=== PATIENT | female | born 1980 | race Caucasian/White ===

== ENCOUNTER 2017-09-19 09:44 | Emergency (ER) | payer BC, MEDICAID ==
--- NOTE | 2017-09-19 10:06 | ER Document Report ---
ED Medical Screen (RME) - General Chief Complaint: General Weakness Stated Complaint: FACIAL NUMBNESS Time Seen by Provider: 09/19/17 10:02 Notes: Patient states for weeks. She states she also has a history of migraines. She states she woke up this morning with severe right-sided headache and noticed when she woke up that her right side was weak and felt "numb". Her significant other states this was approximately 4:30 AM this morning when she informed him of these problems. She states this does not feel like her usual migraines. Cranial nerve exam is unremarkable. TRAVEL OUTSIDE OF THE [place] IN LAST 30 DAYS: No - Related Data Allergies/Adverse Reactions: Penicillins Allergy (Unknown, Verified 09/19/17 09:58) rash codeine Allergy (Verified 09/19/17 09:58) Respiratory distress morphine Allergy (Verified 09/19/17 09:58) Respiratory distress asprin Allergy (Uncoded 09/19/17 09:58) rash Past Medical History - Social History Frequency of alcohol use: None Drug Abuse: None Neurological Medical History: Reports: Hx Migraine Renal/ Medical History: Denies: Hx Peritoneal Dialysis Past Surgical History: Reports: Hx Appendectomy, Hx Cholecystectomy - Immunizations Immunizations up to date: Yes Hx Diphtheria, Pertussis, Tetanus Vaccination: Yes Physical Exam - Vital signs Vitals: Temp Pulse Resp BP Pulse Ox 97.9 F 71 20 131/92 H 97 09/19/17 09:51 09/19/17 09:51 09/19/17 09:51 09/19/17 09:51 09/19/17 09:51 Course - Vital Signs Vital signs: Temp Pulse Resp BP Pulse Ox 97.9 F 71 20 131/92 H 97 09/19/17 09:51 09/19/17 09:51 09/19/17 09:51 09/19/17 09:51 09/19/17 09:51
[2017-09-19 10:29] LABS: ABSOLUTE EOSINOPHILS # (AUTO) 0.1 10^3/uL (0.0-0.6); ABSOLUTE LYMPHOCYTES (AUTO) 1.8 10^3/uL (0.5-4.7); ABSOLUTE MONOCYTES (AUTO) 0.4 10^3/uL (0.1-1.4); ABSOLUTE NEUT (AUTO) 3.4 10^3/uL (1.7-8.2); BASOPHILS % (AUTO) 0.2 % (0-2); EOSINOPHILS % (AUTO) 2.3 % (0-6); HEMATOCRIT 39.7 % (36.0-47.0); HEMOGLOBIN 13.4 g/dL (12.0-15.5); LYMPHOCYTES % (AUTO) 31.3 % (13-45); MEAN CORPUSCULAR HEMOGLOBIN 28.7 pg (27.0-33.4); MEAN CORPUSCULAR HGB CONC 33.9 g/dL (32.0-36.0); MEAN CORPUSCULAR VOLUME 85 fl (80-97); MONOCYTES % (AUTO) 6.7 % (3-13); PLATELET COUNT 229 10^3/uL (150-450); RED BLOOD COUNT 4.68 10^6/uL (3.72-5.28); RED CELL DISTRIBUTION WIDTH 13.5 % (11.5-14.0); SEGMENTED NEUTROPHILS % (AUTO) 59.5 % (42-78); TOTAL CELLS COUNTED % (AUTO) 100 %; WHITE BLOOD COUNT 5.7 10^3/uL (4.0-10.5)
[2017-09-19 10:38] LABS: APPEARANCE,URINE SLIGHTLY-CLOUDY; BILIRUBIN,URINE NEGATIVE (NEGATIVE); COLOR,URINE YELLOW; GLUCOSE, URINE NEGATIVE (NEGATIVE); KETONES,URINE NEGATIVE (NEGATIVE); LEUKOCYTE ESTERASE,URINE MODERATE (NEGATIVE); NITRITE,URINE NEGATIVE (NEGATIVE); PROTEIN,URINE NEGATIVE (NEGATIVE); URINE SPECIFIC GRAVITY 1.013; UROBILINOGEN,URINE NEGATIVE mg/dL (<2.0)
[2017-09-19 10:47] LABS: BLOOD UREA NITROGEN 14 mg/dL (7-20); CALCIUM 9.7 mg/dL (8.4-10.2); GLUCOSE 102 mg/dL (75-110)
[2017-09-19 10:48] LABS: ALANINE AMINOTRANSFERASE 80 U/L (9-52); ALBUMIN 4.1 g/dL (3.5-5.0); ALKALINE PHOSPHATASE 85 U/L (38-126); ANION GAP 6 (5-19); ASPARTATE AMINO TRANSFERASE 36 U/L (14-36); BILIRUBIN,DIRECT 0.1 mg/dL (0.0-0.4); BILIRUBIN,TOTAL 0.3 mg/dL (0.2-1.3); CARBON DIOXIDE 31 mmol/L (22-30); CHLORIDE 104 mmol/L (98-107); POTASSIUM 4.1 mmol/L (3.6-5.0); SODIUM 141.2 mmol/L (137-145); TOTAL PROTEIN 6.9 g/dL (6.3-8.2)
--- NOTE | 2017-09-19 10:54 | RADIOLOGY REPORT (SQ) ---
EXAM DESCRIPTION: CT HEAD WITHOUT COMPLETED DATE/TIME: 09/19/2017 10:37 am REASON FOR STUDY: right sided weakness COMPARISON: MRI brain dated 06/29/2012 TECHNIQUE: Axial images acquired through the brain without intravenous contrast. Images reviewed wi th bone, brain and subdural windows. Images stored on PACS. All CT scanners at this facility use dose modulation, iterative reconstruction, and/or weight based d osing when appropriate to reduce radiation dose to as low as reasonably achievable (ALARA). [facility]: Dose Right [facility]: CareDose [facility]: Dose Right [facility]: Teradose 4D [facility]: Wrike RADIATION DOSE: CT Rad equipment meets quality standard of care and radiation dose reduction techniq ues were employed. CTDIvol: 53.2 mGy. DLP: 1017 mGy-cm. mGy. LIMITATIONS: None. FINDINGS: VENTRICLES: Normal size and contour. CEREBRUM: No masses. No hemorrhage. No midline shift. No evidence for acute infarction. Normal gra y/white matter differentiation. No areas of low density in the white matter. CEREBELLUM: No masses. No hemorrhage. No alteration of density. No evidence for acute infarction. EXTRAAXIAL SPACES: No fluid collections. No masses. ORBITS AND GLOBE: No intra- or extraconal masses. Normal contour of globe without masses. CALVARIUM: No fracture. PARANASAL SINUSES: No fluid or mucosal thickening. SOFT TISSUES: No mass or hematoma. OTHER: No other significant finding. IMPRESSION: NORMAL BRAIN CT WITHOUT CONTRAST. EVIDENCE OF ACUTE STROKE: NO. COMMENT: Quality ID # [id number]: Final reports with documentation of one or more dose reduction techniques (e.g., Automated exposure control, adjustment of the mA and/or kV according to patient size, use of iterative reconstruction technique) TECHNICAL DOCUMENTATION: JOB ID: [id number] [employer]- All Rights Reserved Reading location - IP/workstation name: [email or web address]
[2017-09-19] MEDS ORDERED: NORMAL SALINE 1000 ML 1,000 ML IV ONE (11:14)
[2017-09-19] MEDS ORDERED: MECLIZINE HCL 25 MG TABLET PO ONE (11:15)
[2017-09-19] MEDS ORDERED: BUTALB/ACETAMINOPHEN/CAFFEINE 1 TAB EACH PO ONE (11:15)
[2017-09-19] MEDS ORDERED: ACETAMINOPHEN 325 MG TABLET PO ONE (11:15)
--- NOTE | 2017-09-19 11:19 | ER Document Report ---
ED Neuro Symptoms/Deficit - General Information source: Patient TRAVEL OUTSIDE OF THE [place] IN LAST 30 DAYS: No - HPI Patient complains to provider of: Other - Pain, numbness to right face, upper extremity and right lower extremity. No: Difficulty standing, Difficulty walking, Facial Droop, Paralysis, Speech Impairment Onset: This morning Awoke with symptoms: Yes Quality of pain: Sharp Pain Level: 5 Loss of consciousness: No loss of consciousness Baseline Cognitive: Alert, oriented X 3 Alert To: Name/Voice Patient Orientation: Person, Place, Time, Events Altered sensation: RUE, RLE, R facial Decreased ability to stand/walk: Off balance. denies: Cannot walk, Cannot stand Vision problem/glaucoma: No Associated symptoms: Dizzy, Headache, Nausea. denies: Chest pain, Back pain, Chills, Fever, Lightheadedness Similar symptoms previously: No Recently seen / treated by doctor: No <SERGEY CASTRO - Last Filed: 09/19/17 19:38> <KAMILAH ADAMS - Last Filed: 09/20/17 06:56> <ARACELI LEIJA - Last Filed: 09/20/17 10:39> - General Chief Complaint: General Weakness Stated Complaint: FACIAL NUMBNESS Time Seen by Provider: 09/19/17 10:02 Notes: Patient states that she woke up at 430 this morning with a sudden right-sided headache. Patient reported right sided facial pain, numbness with right upper extremity and right lower extremity pain and numbness. Patient states that she does have a history of frequent migraines although states that this headache pain is different from her typical migraines. Patient additionally reports that she has chronic right upper extremity numbness for the past 5 years but states that she does not typically have pain with her numbness to her right upper extremity. Patient states she did see a neurologist about her arm numbness but never followed up after having a MRI of the brain. Patient also reports that she has had some right lower eyelid twitching and pain for the past month. Patient does report cough today with some dizziness that she describes as feeling off balance. Patient reports nausea but denies any vomiting or diarrhea. Patient does report photophobia and phonophobia. 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 denies: Fever, Recent illness EENT: Eye pain - Right lower eyelid twitching, tenderness is one-month Cardiovascular: Dizziness. denies: Chest pain, Syncope Respiratory: No symptoms reported. denies: Cough, Short of breath Gastrointestinal: Nausea. denies: Abdominal pain, Diarrhea, Vomiting Genitourinary: No symptoms reported Female Genitourinary: No symptoms reported Musculoskeletal: Other - Right upper extremity pain, right lower extremity pain. denies: Back pain, Neck pain Skin: No symptoms reported Hematologic/Lymphatic: No symptoms reported Neurological/Psychological: Headaches, Numbness - Right face, right upper extremity, right lower extremity. denies: Confusion, Dementia, Seizure, Lost consciousness, Speech impairment, Tingling <SERGEY CASTRO - Last Filed: 09/19/17 19:38> Physical Exam - General General appearance: Appears well, Alert In distress: None - HEENT Head: Normocephalic, Atraumatic Eyes: Normal Conjunctiva: Normal Extraocular movements intact: Yes Eyelashes: Normal Pupils: PERRL Ears: Normal Nasal: Normal Mouth/Lips: Normal Mucous membranes: Normal Pharynx: Normal Neck: Normal, Supple. No: Lymphadenopathy, Meningismus - Respiratory Respiratory status: No respiratory distress Chest status: Nontender Breath sounds: Normal. No: Rales, Rhonchi, Stridor, Wheezing Chest palpation: Normal - Cardiovascular Rhythm: Regular Heart sounds: S1 appreciated, S2 appreciated Murmur: No - Abdominal Inspection: Normal Distension: No distension Bowel sounds: Normal Tenderness: Nontender - Back Back: Normal, Nontender. No: Vertebra tenderness - Extremities General upper extremity: Normal inspection, Tender - Right upper extremity, Normal color, Normal ROM, Normal strength. No: Edema General lower extremity: Normal inspection, Tender - Right lower extremity, Normal strength. No: Edema - Neurological Neuro grossly intact: Yes Cognition: Normal Orientation: AAOx4 [place] Coma Scale Eye Opening: Spontaneous Mert Coma Scale Verbal: Oriented [place] Coma Scale Motor: Obeys Commands Mert Coma Scale Total: 15 Speech: Normal. No: Dysarthria, Expressive aphasia, Receptive aphasia Cranial nerves: Sensory deficit - Decreased sensation with light palpation of right upper extremity, right face and right lower extremity. No: Facial palsy, Gaze palsy Cerebellar coordination: Heel-fajardo, Finger-nose rhombey, Rapid alt. movements. 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 No: Involuntary movements, Pronator drift, Hemiplegia Sensory: Altered light touch - Psychological Associated symptoms: Normal affect, Normal mood - Skin Skin Temperature: Warm Skin Moisture: Dry Skin Color: Normal <SERGEY CASTRO - Last Filed: 09/19/17 19:38> <KAMILAH ADAMS - Last Filed: 09/20/17 06:56> <ARACELI LEIJA - Last Filed: 09/20/17 10:39> - Vital signs Vitals: Temp Pulse Resp BP Pulse Ox 97.9 F 71 20 131/92 H 97 09/19/17 09:51 09/19/17 09:51 09/19/17 09:51 09/19/17 09:51 09/19/17 09:51 - HEENT Notes: Tongue protrudes midline (SERGEY CASTRO) Course - Laboratory Result Diagrams: 09/19/17 10:05 09/19/17 10:05 <SERGEY CASTRO - Last Filed: 09/19/17 19:38> - Laboratory Result Diagrams: 09/19/17 10:05 09/19/17 10:05 <KAMILAH ADAMS - Last Filed: 09/20/17 06:56> - Laboratory Result Diagrams: 09/19/17 10:05 09/19/17 10:05 <ARACELI LEIJA - Last Filed: 09/20/17 10:39> - Re-evaluation Re-evalutation: 09/19/17 11:[address] Yap who advises MRI of brain. 09/19/17 14:13 call placed to [facility] for neuro consulatation. Pt c/o continued GARCIA, RUE, RLE pain and numbness. 09/19/17 14:[address] Robertson at [facility] regarding patient presentation, discussed exam finding and imaging results. Dr Robertson feels that patient needs inpatient MS evaluation and that she will need to be transferred. Dr. Robertson does agree to accept patient for transfer. 09/19/17 15:05 pt updated regarding plans, pt agreeable with transfer. Pt continues with R GARCIA pain, RUE, RLE pain with numbness 09/19/17 18:00 pt resting, requesting meal tray, RN advised pt yet to get dinner tray. 09/19/17 19:39 bedside and handoff given to Loree JARVIS (SERGEY CASTRO) 09/20/17 02:37 Pt has no new concerns or complaints. Pt was given another dose of toradol for pain control. Vitals acceptable. We are still waiting for a bed at [facility]. 09/20/17 06:56 Recheck of patient. Pt would like tylenol. She declined any other stronger pain medication at this time. Pt also declined any ice/heat. Vitals acceptable, no other concerns or complaints at this time. Reviewed case with Renetta Leija REWORK OPERATOR who will coordinate care at this point. (KAMILAH ADAMS) 09/20/17 07:50 assumed care of the pt at 0700 at the bedside, she does not need anything at this time. Called [facility], 12 awaiting beds, said another 36-48 hour wait. [facility] , 41 waiting for medical beds. No Neuro at [facility]. 09/20/17 08:[address] robertson through his office at [phone] to left him know that there is a 36-48 hour wait for medical bed at [facility]. The 125 mg of methylprednisolone that was given IV the patient states that it made her headache worse on the right parietal posterior occipital area and it makes her want to close her right eye. Otherwise the patient states there is no change. Her vitals are stable. 09/20/17 08:46 Dr. Robertson states that she can be sent to ED to ED transfer, he will call the ED to tell them. I told him that I tried the Compazine and Benadryl and it is reducing the headache from a 5/5-4/5 it is just been given. She feels a little dizzy but I told her that it would make her sleepy. We will set up transport to the emergency department at [facility]. Dr. Richmond aware. 09/20/17 09:49 [facility] is here to take the patient I will start normal saline at 150 an hour since she stated that her urine was dark this morning. Her vitals are stable and she is stable for transport. 09/20/17 10:38 spoke with [facility] charge nurse GAMAL who has the history and does not need me to speak with the physician. (ARACELI LEIJA) - Vital Signs Vital signs: Temp Pulse Resp BP Pulse Ox 98.2 F 71 18 123/81 99 09/20/17 09:48 09/20/17 09:43 09/20/17 09:43 09/20/17 09:48 09/20/17 09:48 - Laboratory Laboratory results interpreted by me: 09/19/17 09/19/17 10:05 10:05 Carbon Dioxide 31 H ALT 80 H Ur Leukocyte Esterase MODERATE H Discharge <SERGEY CASTRO - Last Filed: 09/19/17 19:38> <KAMILAH ADAMS - Last Filed: 09/20/17 06:56> <ARACELI LEIJA - Last Filed: 09/20/17 10:39> - Discharge Condition: Stable Disposition: [facility]
--- NOTE | 2017-09-19 13:26 | RADIOLOGY REPORT (SQ) ---
EXAM DESCRIPTION: MRI HEAD COMBO COMPLETED DATE/TIME: 09/19/2017 1:05 pm REASON FOR STUDY: GARCIA, numbness/pain RONIT THOMAS COMPARISON: MRI brain 06/29/2012 CT brain 09/19/2017 TECHNIQUE: Multiplanar imaging includes noncontrasted T1, T2, FLAIR, diffusion with ADC map and post gadolinium contrast T1 sequences. Images stored on PACS. CONTRAST TYPE AND DOSE: 20 mL Multihance. RENAL FUNCTION: GFR > 60. LIMITATIONS: None. FINDINGS: ANATOMY: No developmental anomalies. Normal vascular flow voids. Pituitary fossa normal. CSF SPACES: Normal in size and contour. No hemorrhage. CEREBRUM: Few punctate foci of increased FLAIR/T2 signal are present in the right and left frontal eli bcortical white matter, unchanged from 06/29/2012. These are nonspecific and could be related to migr day headaches. Minimal small vessel ischemic change, gliosis along perivascular spaces are possible . Demyelinating disease is possible but considered less likely. No MRI evidence of acute large territory ischemic change, acute intracranial hemorrhage, mass effect, or midline shift. POSTERIOR FOSSA: No signal alteration. No hemorrhage. No edema, masses, or mass effect. Internal yohana tory canals, cerebellopontine angles, mastoids normal. No enhancing lesions. No abnormal enhancement post contrast. DIFFUSION IMAGING: Negative for acute or subacute infarction. ORBITS: No masses. Globes normal. PARANASAL SINUSES: No fluid levels. Mucus or serous retention cyst left maxillary sinus unchanged. OTHER: No other significant finding. IMPRESSION: Minimal white matter signal abnormality in the bifrontal regions, could be gliosis along perivascular spaces or related to migraine headaches. Demyelinating disease is possible but conside red much less likely. EVIDENCE OF ACUTE STROKE: NO. TECHNICAL DOCUMENTATION: JOB ID: [id number]- All Rights Reserved Reading location - IP/workstation name: [email or web address]
[2017-09-19] MEDS ORDERED: KETOROLAC TROMETHAMINE INJ/PF 30 MG/1 ML SDV IV ONE (14:12)
[2017-09-20] MEDS ORDERED: KETOROLAC TROMETHAMINE INJ/PF 30 MG/1 ML SDV IV ONE ×2 (02:04→08:46)
[2017-09-20] MEDS ORDERED: ACETAMINOPHEN 325 MG TABLET PO ONE (06:16)
[2017-09-20] MEDS ORDERED: METHYLPREDNISOLONE INJ 125 MG/2 ML SDV IV ONE (06:56)
[2017-09-20] MEDS ORDERED: PROCHLORPERAZINE EDISYLATE INJ 10 MG/2 ML VIAL IV ONE (08:09)
[2017-09-20] MEDS ORDERED: DIPHENHYDRAMINE HCL 50 MG/ML VIAL IV ONE (08:09)
[2017-09-20] MEDS ORDERED: NORMAL SALINE 1000 ML 1,000 ML IV ONE (09:50)
[2017-09-20 10:14] VITALS: BP 123/81
== END 2017-09-20 09:50 | disposition short-term general hospital (02) ==
LOC: ER 09:44
DX: R20.0 Anesthesia of skin (principal); M79.601 Pain in right arm; M79.604 Pain in right leg; R51 Headache; R42 Dizziness and giddiness; R25.3 Fasciculation; R05 Cough; H53.149 Visual discomfort, unspecified; R11.0 Nausea; Z86.69 Personal history of other diseases of the nervous system and sense organs; Z88.0 Allergy status to penicillin; Z88.5 Allergy status to narcotic agent; Z88.6 Allergy status to analgesic agent
CPT/HCPCS: 96376; 99285; 96361; 96374; 96375; 36415; 85025; 81025; 80053; 81001; 70553; 70450; A9577; J3490; J1200; J2930; J1885 ×2; J0780; J7030